=== PATIENT | female | born 2005 | race Two or more races ===

== ENCOUNTER 2025-03-22 17:22 | Emergency (ER) | payer MEDICAID, SELFPAY ==
--- NOTE | 2025-03-22 17:28 | EKG_ITS ---
[facility] Test Date: 2025-03-22 Pat Name: SALOME LOVING Department: Room: - Gender: Female Intraoperative Neuro Tech: : 2005 Requested By: Aline Fam Order Number: [id number] Reading MD: Aline Fam Measurements Intervals [place] Rate: 81 P: 61 CO: 157 QRS: 90 QRSD: 80 T: 59 QT: 359 QTc: 418 Interpretive Statements SINUS RHYTHM WITH SINUS ARRHYTHMIA No previous ECG available for comparison /store/S0/[id number]
[2025-03-22 17:36] VITALS: BP 118/86; PULSE 76; RESP 20; TEMP 36.9; O2SAT 98; BMI 38.3
--- NOTE | 2025-03-22 18:34 | XR_ITS ---
Examination: PA chest single view TECHNIQUE: Upright PA chest single view Date and time: March 22, 2025, 1848 hours, comparison February 18, 2017 INDICATION: Chest pain today. FINDINGS: Normal heart size. The lungs are clear. The osseous structures are intact IMPRESSION: No active disease
[2025-03-22 18:50] LABS: Basophils # (Auto) 0.1 Thou/mm3 (0.0-0.2); Basophils % (Auto) 1 % (0-2.5); Eosinophils # (Auto) 0.3 Thou/mm3 (0.0-0.5); Eosinophils % (Auto) 2 % (0-10); Hematocrit 41.5 % (36.0-46.0); Hemoglobin 14.3 g/dL (12.0-16.0); Immature Granulocytes Auto 0.02 Thou/mm3 (0.00-0.00); Lymphocytes # (Auto) 3.2 Thou/mm3 (1.0-4.8); Lymphocytes % (Auto) 29 % (10-50); Mean Corpuscular HGB Conc 34.5 g/dl (31.0-37.0); Mean Corpuscular Hemoglobin 30.6 pg (25.0-35.0); Mean Corpuscular Volume 89 fL (80-100); Monocytes # (Auto) 0.8 Thou/mm3 (0.0-0.8); Monocytes % (Auto) 7 % (0-12); Neutrophils # (Auto) 6.7 Thou/mm3 (1.8-7.7); Neutrophils % (Auto) 60 % (37-80); Nucleated Red Blood Cell # 0.00 Thou/mm3 (0.00-0.00); Nucleated Red Blood Cell % 0 /100 WBC (0); Platelet Count 243 Thou/mm3 (140-440); RDW Standard Deviation 42.2 fL (36.4-46.3); Red Blood Count 4.67 Miln/mm3 (4.00-5.20); White Blood Count 11.1 Thou/mm3 (4.5-11.0)
[2025-03-22 19:07] LABS: Alanine Aminotransferase 57 U/L (10-49); Albumin, Serum 4.5 gm/dL (3.5-5.0); Albumin/Globulin Ratio 1.7 (1.2-2.2); Alkaline Phosphatase 107 U/L (46-116); Anion Gap 8 (7-16); Aspartate Amino Transferase 28 U/L (0-34); BUN/Creatinine Ratio 11 Ratio (12-20); Bilirubin,Total 0.4 mg/dL (0.3-1.2); Blood Urea Nitrogen 10 mg/dL (9-23); Calcium 9.2 mg/dL (8.3-10.6); Calcium (Corrected) 9.2 mg/dL (8.5-10.1); Carbon Dioxide 26.4 mMol/L (20.0-31.0); Chloride 106 mMol/L (98-107); Creatinine (Component) 0.9 mg/dL (0.6-1.3); Estimated Creatinine Clearance 128.1 mL/min (>60); Globulin 2.6 gm/dL (2.3-3.5); Glucose 92 mg/dL (74-106); Osmolality,Calculated 278 (275-295); Potassium 4.4 mMol/L (3.4-5.1); Sodium 140 mMol/L (136-145); Total Protein 7.1 gm/dL (5.7-8.2); Troponin I < 0.002 ng/mL (0.0-0.045); eGFR > 60 See Note
[2025-03-22 19:32] LABS: B-Type Natriuretic Peptide < 20 pg/mL (0-100)
--- NOTE | 2025-03-22 20:25 | EDNOTE_ITS ---
ED Chest Pain RME/HPI General Chief Complaint: Chest Pain Stated Complaint: Chest pain after an energy drink Time Seen by Provider: 03/22/25 18:08 Source: patient Arrival date/time: 03/22/25 17:22 This is a case of 19-year-old female who came in in the emergency room due to chest pain today after drinking coffee patient denies any palpitation no shortness of breath patient denies any medical history patient states that the pain is throbbing mostly on the left anterior chest Limitations: no limitations Related Data Home Medications ?Medication ?Instructions ?Recorded ?Confirmed vits no.130-ferrous fum 1 tab PO QDAY 4 04/08/24 27 mg iron-folic acid 800 mcg tablet ( Vitamin) Allergies Allergy/AdvReac Type Severity Reaction Status Date / Time No Known Allergies Allergy Verified 03/22/25 17:26 Review of Systems Review of Systems Systems Reviewed: All systems reviewed, normal except as documented Constitutional Constitutional: Reports system reviewed and no additional complaints, except as documented and Reports as per HPI Cardiovascular Cardiovascular: Reports system reviewed and no additional complaints, except as documented, Reports as per HPI, Denies acrocyanosis, Reports chest pain, Denies chest pain at rest, Denies chest pain with activity, Denies claudication, Denies diaphoresis, Denies dyspnea, Denies dyspnea on exertion, Denies edema, Denies irregular heart rhythm, Denies leg edema, Denies leg ulcers, Denies lightheadedness, Denies orthopnea, Denies palpitations, Denies paroxysmal nocturnal dyspnea, Denies pedal edema, Denies radiating jaw, neck or arm pain, Denies rapid heart rate, Denies slow heart rate and Denies syncope Respiratory Respiratory: Reports system reviewed and no additional complaints, except as documented, Reports as per HPI, Denies dyspnea and Denies dyspnea on exertion Gastrointestinal Gastrointestinal: Reports system reviewed and no additional complaints, except as documented and Reports as per HPI Musculoskeletal Musculoskeletal: Reports system reviewed and no additional complaints, except as documented and Reports as per HPI Neurologic Neurologic: Reports system reviewed and no additional complaints, except as documented, Reports as per HPI and Denies syncope Endocrine Endocrine: Denies palpitations Past Medical History Past Medical History NEUROLOGIC: Negative Neurological Disorders CARDIAC: Negative Cardiac Disorders, Myocardial Infarction, Cardiac Arrhythmia, Atrial Fibrillation, Angina, Heart Murmur, Coronary Artery Disease, Atherosclerotic Heart Disease, Peripheral Vascular Disease, Hypercholesterolemia, Aneurysm, Congestive Heart Failure, Congenital Heart Disease, Valvular Heart Disease, Rheumatic Fever, Cardiomyopathy, Edema, Pericarditis, Cellulitis, Deep Vein Thrombosis, Hypertension, Hypotension or Varicose Veins RESPIRATORY: Negative Chronic Obstructive Pulmonary Disease (COPD) GASTROINTESTINAL: Negative Gastrointestinal Disorders GENITOURINARY: Negative Genitourinary Disorders or Renal Disease MUSCULOSKELETAL: Negative Musculoskeletal Disorders ENDOCRINE: Negative Endocrine Disorders, Diabetes Mellitus Type 1 or Diabetes Mellitus Type 2 HEMATOLOGIC: Negative Blood Disorders OTHER HISTORY: Negative Autoimmune Disease, Blood Transfusions, Blood Transfusion Reaction, Anesthesia Reactions, Organ Transplant, Chemotherapy, MRSA or Cancer Family History FAMILY HISTORY: Positive Family Cardiac Disorders (Grandmother High blood pressure); Negative Family Psychiatric Problems, Family Respiratory Disorders, Family Gastrointestinal Problems, Family Cancer, Family Surgery or Family Anesthesia Reaction Surgical History SURGICAL: Negative Pacemaker, Endocrine Surgery, Ear Surgery, Abdominal Surgery, Nephrectomy, Joint Replacement, Neurologic Surgery, Mastectomy, Section or Organ Transplant Social History SMOKING STATUS: Current every day smoker ED Exam General Limitations: Present no limitations General appearance: Present alert and in no apparent distress Head Head exam: Present atraumatic Eye Eye exam: Present normal appearance, PERRL and EOMI ENT ENT exam: Present normal exam, normal oropharynx and mucous membranes moist Neck Neck exam: Present normal inspection, full ROM and trachea midline; Absent tenderness, meningismus or lymphadenopathy Chest Chest inspection: Present normal inspection and symmetric chest wall rise; Absent tenderness, rash or abscess Respiratory Respiratory exam: Present normal lung sounds bilaterally; Absent respiratory distress, wheezes, stridor, accessory muscle use or prolonged expiratory phase Cardiovascular Cardiovascular exam: Present regular rate, normal rhythm and normal heart sounds; Absent bradycardia, tachycardia, irregular rhythm or systolic murmur Abdominal Exam Abdominal exam: Present soft and normal bowel sounds Extremities Exam Extremities exam: Present normal inspection and full ROM Back Exam Back exam: Present normal inspection and full ROM Neurological Exam Neurological exam: Present alert, oriented X3, CN II-XII intact, normal gait and reflexes normal; Absent motor sensory deficit Psychiatric Psychiatric exam: Present normal affect and normal mood Skin Skin exam: Present warm, dry, intact and normal color Course Quality Measures none Orders Category Date Time Status EKG (ED ONLY) *Do not use* NOW Care 03/22/25 17:28 Completed EKG (ED Only) Stat Exams 03/22/25 17:28 Draft XR chest 1V portable Stat Exams 03/22/25 18:34 Completed BNP [B-Type Natriuretic Peptide] Stat Lab 03/22/25 18:42 Completed CBC Stat Lab 03/22/25 18:42 Completed CMP [Comprehensive Metabolic Panel] Stat Lab 03/22/25 18:42 Completed HCG Qualitative,Urine Stat Lab 03/22/25 20:21 Received Troponin I Stat Lab 03/22/25 18:42 Completed Ibuprofen Tab [Motrin Tab] Med 03/22/25 20:24 Discontinued 800 mg PO X1 ONE Vital Signs Vital signs: Vital Signs Temperature 98.5 F 03/22/25 17:36 Pulse Rate 76 03/22/25 17:36 Respiratory Rate 20 03/22/25 17:36 Blood Pressure 118/86 H 03/22/25 17:36 Pulse Oximetry (%) 98 03/22/25 17:36 Oxygen Delivery Method Room Air 03/22/25 17:36 Patient is not febrile not tachycardic not tachypneic BP stable not hypoxic oxygen saturation percent is 98% in room air Chest Pain MDM Narrative MDM Narrative:: This is a case of 19-year-old female who came in in the emergency room due to ch est pain today after drinking coffee patient denies any palpitation no shortness of breath patient denies any medical history patient states that the pain is throbbing mostly on the left anterior chest physical examination patient is awake alert oriented not in distress nontoxic looking patient vital signs stable BP stable not tachycardic not tachypneic afebrile and nonhypoxic lung sounds is clear no crackles no rales no retraction no stridor heart normal rate regular rhythm no murmur the rest of the physical exam and neurological exam is normal and unremarkable blood test showed no leukocytosis no anemia kidney and liver function is normal no electrolyte imbalance chest x-ray is normal at this point there is no signs and symptoms of cardiopulmonary pathology patient was advised to follow-up with PCP in 2 days for reevaluation and to be referred to freight sorter for possible echocardiogram stress test and Holter monitor monitor for any recurrence worsening symptoms or any emergent concerns she will return the emergency room immediately or call [phone] Patient was discharged with comfortable condition walking with stable gait. Patient verbalized no further complains explained diagnosis and answered patient question. Patient is comfortable with the proposed management plan including the need to follow up with his/her primary care physician and any specialist if applicable Discussed patient for any urgent condition or worsening sx, He/She needed to go to emergency room immediately or call 911. Patient acknowledge the responsibility to follow up as instructed and to monitor her/his symptoms. For any persistence of the symptoms for more than 3-5 days return precaution advised. Discussed the result of the test and was given printed discharge instruction Patient data External records reviewed:: [facility] previous records Clinical information provided by:: patient Social determinants that could affect healthcare access:: none Patient has the following chronic illnesses:: None How is presenting disease/condition affected by chronic disease/condition?: no chronic disease Evaluation data The following diagnostics were reviewed and interpreted by me:: lab results and radiology exam(s) Lab and/or radiology exams considered but not ordered:: Reviewed Interpretation Summary: Reviewed Medications / Prescriptions Medications or Prescriptions considered but not ordered:: Given Medication administrations:: Medication Administration History Discontinued Medications Ibuprofen (Ibuprofen Tab 400 Mg Tablet) 800 mg PO X1 ONE Stop: 03/22/25 20:25 Given Consultations Consultation(s) initiated? (list below): No Diagnosis Chest Pain Differential Diagnosis: atypical chest pain, costochondritis and chest pain Most likely diagnosis given after review of the tests above:: Chest pain of unknown etiology Admission Indicated Admission indicated?: not indicated Explain why admission is indicated or not indicated:: Not indicated Admission Request Was there a request for admission?: No Admission Attestation Admission request attestation: Not indicated Disposition Plan Disposition Plan: Discharge Discharge Attestation Discharge Attestation: The patient and all family members were given an opportunity to ask questions and understood the discharge instructions. Discharge instructions specifically effects, indications for sooner follow up or return to the emergency department, and the expected course of current diagnosis. Patient condition: Stable Discharge Plan Plan Patient Disposition: HOME (Self Care) Patient condition on transfer: Stable Prescriptions/Referrals Prescriptions/Med Rec: No Action Vitamin 27 mg iron- 800 mcg tablet 1 tab PO QDAY Patient Comments: TAKE 1 TABLET BY MOUTH EVERY DAY Referrals: No Primary/Family,Physician [Primary Care Provider] - In 1 week Problem List Clinical Impression: Chest pain of unknown etiology Patient/Caregiver Discharge Instructions Education Materials: ED Chest Pain, Uncertain Cause Additional Instructions: Follow-up with your primary care physician in 2 days for reevaluation and to be referred to freight sorter for further evaluation and treatment of chest pain for possible echocardiogram stress test and Holter monitor recurrence worsening symptoms or any emergent concern call 911 or go to the nearest emergency room ibuprofen and Tylenol as needed for pain Print Language: Portuguese Stand Alone Forms: [employer] Award Info., Patient Portal Info Letter PA/HOISTING MACHINE OPERATOR Supervising Physician PA/HOISTING MACHINE OPERATOR Supervising Physician: dr cordoav
[2025-03-22] MEDS: IBUPROFEN TAB 400 MG TABLET 800 MG PO (20:29)
[2025-03-22 20:31] LABS: HCG Qualitative,Urine Negative
== END 2025-03-22 20:32 | disposition home or self-care (01) ==
PROVIDERS: Nurse Practitioner Family; Emergency Provider Emergency Medicine
DX: R07.9 Chest pain, unspecified (principal); I49.8 Other specified cardiac arrhythmias
CPT/HCPCS: 36415; 71045; 80053; 81025; 83880; 84484; 85025; 93005; 99283; A9270

== ENCOUNTER 2025-07-13 09:24 | Emergency (ER) | payer MEDICAID, SELFPAY ==
[2025-07-13 09:33] VITALS: BP 124/80; PULSE 64; RESP 16; TEMP 36.6; O2SAT 97; BMI 39.1
--- NOTE | 2025-07-13 09:39 | EKG_ITS ---
[facility] Test Date: 2025-07-13 Pat Name: SALOME LOVING Department: Room: - Gender: Female Home Therapy Clinician: : 2005 Requested By: Beto Cast (CARLO) Order Number: [id number] Reading MD: Beto Cast (MASONRY CONTRACTOR) Measurements Intervals [place] Rate: 67 P: 46 DE: 155 QRS: 43 QRSD: 80 T: 72 QT: 340 QTc: 361 Interpretive Statements SINUS RHYTHM WITH SINUS ARRHYTHMIA NONSPECIFIC T-WAVE ABNORMALITY Compared to ECG 03/22/2025 17:37:17 T-wave abnormality now present /store/S0/[id number]
--- NOTE | 2025-07-13 09:39 | XR_ITS ---
EXAMINATION: PA lateral chest 2 views TECHNIQUE: Upright PA lateral chest 2 views Date and time: July 13, 2025, 0948 hours INDICATIONS: Chest pain today. FINDINGS: Mild enlargement left ventricle. No pneumonia or pulmonary edema. The osseous structures are intact IMPRESSION: Minor prominence left ventricle, clinical correlation advised No pneumonia or pulmonary edema
--- NOTE | 2025-07-13 09:51 | PD.EDRME ---
Rapid Medical Screening Exam RME Arrival date/time: 07/13/25 09:24 20-year-old female presents to the emergency room today for complaints of back pain and chest pain Chief Complaint: Chest Pain Time Seen by Provider: 07/13/25 09:29 Vital signs: Vital Signs Temperature 97.9 F 07/13/25 09:33 Pulse Rate 64 07/13/25 09:33 Respiratory Rate 16 07/13/25 09:33 Blood Pressure 124/80 07/13/25 09:33 Pulse Oximetry (%) 97 07/13/25 09:33 Oxygen Delivery Method Room Air 07/13/25 09:33 Vital signs reviewed by provider: Yes Exam: On exam patient well-appearing patient does not appear ill or toxic no acute distress Heart sounds are normal lung sounds are clear Clinical Impression: Lab work and imaging ordered
[2025-07-13 10:26] LABS: Basophils # (Auto) 0.1 Thou/mm3 (0.0-0.2); Basophils % (Auto) 1 % (0-2.5); Eosinophils # (Auto) 0.2 Thou/mm3 (0.0-0.5); Eosinophils % (Auto) 2 % (0-10); Hematocrit 41.6 % (36.0-46.0); Hemoglobin 14.0 g/dL (12.0-16.0); Immature Granulocytes Auto 0.02 Thou/mm3 (0.00-0.00); Lymphocytes # (Auto) 3.5 Thou/mm3 (1.0-4.8); Lymphocytes % (Auto) 38 % (10-50); Mean Corpuscular HGB Conc 33.7 g/dl (31.0-37.0); Mean Corpuscular Hemoglobin 31.7 pg (25.0-35.0); Mean Corpuscular Volume 94 fL (80-100); Monocytes # (Auto) 0.8 Thou/mm3 (0.0-0.8); Monocytes % (Auto) 8 % (0-12); Neutrophils # (Auto) 4.8 Thou/mm3 (1.8-7.7); Neutrophils % (Auto) 51 % (37-80); Nucleated Red Blood Cell # 0.00 Thou/mm3 (0.00-0.00); Nucleated Red Blood Cell % 0 /100 WBC (0); Platelet Count 221 Thou/mm3 (140-440); RDW Standard Deviation 40.2 fL (36.4-46.3); Red Blood Count 4.41 Miln/mm3 (4.00-5.20); White Blood Count 9.4 Thou/mm3 (3.6-11.0)
[2025-07-13 10:32] LABS: Alanine Aminotransferase 92 U/L (10-49); Albumin, Serum 4.8 gm/dL (3.5-5.0); Albumin/Globulin Ratio 2.7 (1.2-2.2); Alkaline Phosphatase 106 U/L (46-116); Anion Gap 11 (7-16); Aspartate Amino Transferase 38 U/L (0-34); BUN/Creatinine Ratio 13 Ratio (12-20); Bilirubin,Total 0.4 mg/dL (0.3-1.2); Blood Urea Nitrogen 13 mg/dL (9-23); Calcium 8.9 mg/dL (8.3-10.6); Calcium (Corrected) 8.9 mg/dL (8.5-10.1); Carbon Dioxide 25.5 mMol/L (20.0-31.0); Chloride 108 mMol/L (98-107); Creatinine (Component) 1.0 mg/dL (0.6-1.3); Estimated Creatinine Clearance 115.6 mL/min (>60); Globulin 1.8 gm/dL (2.3-3.5); Glucose 90 mg/dL (74-106); Osmolality,Calculated 286 (275-295); Potassium 4.5 mMol/L (3.4-5.1); Sodium 144 mMol/L (136-145); Total Protein 6.6 gm/dL (5.7-8.2); Troponin I < 0.002 ng/mL (0.0-0.045); eGFR > 60 See Note
[2025-07-13 11:02] LABS: Collection Type, Urine Clean Catch
[2025-07-13 11:09] LABS: Bilirubin,Urine Negative (Negative); Blood,Urine Negative (Negative); Clarity,Urine Clear (Clear/Hazy); Color,Urine Lt-Yellow (Lt Yel-Yel); Culture Indicated,Urine Not Indicated; Glucose, Urine Negative (Negative); Ketones,Urine Negative (Negative); Leukocyte Esterase,Urine Positive (Negative); Nitrite,Urine Negative (Negative); PH,Urine 6.0 (5.0-7.0); Protein,Urine Negative (Neg - Trace); RBC,Urine 3 /hpf (0-3); Specific Gravity,Urine 1.028 (1.001-1.035); Squamous Epithelial Cell,Urine 7 /hpf (0-5); Urobilinogen,Urine Negative mg/dL (0.0-1.0); WBC,Urine 3 /hpf (0-5)
[2025-07-13 11:32] LABS: HCG Qualitative,Urine Negative
[2025-07-13 12:09] VITALS: BP 112/75; PULSE 62; RESP 16; TEMP 36.7; O2SAT 98
--- NOTE | 2025-07-13 12:28 | EDNOTE_ITS ---
<Statement entered by Palak Richardson MD - 07/21/25 14:15> As co-signing physician, I was present and available for consult prn. I concur with the plan and care as documented by the midlevel provider. ED General RME/HPI General Chief complaint: Chest Pain Stated complaint: LEFT CHEST PAIN, BACK PAIN Time Seen by Provider: 07/13/25 09:29 Arrival date/time: 07/13/25 09:24 CC: Left lateral chest wall pain HPI ongoing for the past 3 days denies trauma blunt trauma repetitive motion heavy lifting. No other complaints including cough but states that she has difficulty taking a deep breath secondary to the localized pain and the pain is reproducible with palpation. Currently the pain is a 3 to a 4 on a 10 scale. RME / HPI RME / HPI narrative: 07/13/25 09:24 20-year-old female presents to the emergency room today for complaints of back pain and chest pain Exam: On exam patient well-appearing patient does not appear ill or toxic no acute distress Heart sounds are normal lung sounds are clear Impression: Lab work and imaging ordered Related Data Home Medications ?Medication ?Instructions ?Recorded ?Confirmed vits no.130-ferrous fum 1 tab PO QDAY 4 04/08/24 27 mg iron-folic acid 800 mcg tablet ( Vitamin) Previous Rx's ?Medication ?Instructions ?Recorded meloxicam 7.5 mg tablet 7.5 mg PO QDAY #10 tabs 06/20 02/10 Allergies Allergy/AdvReac Type Severity Reaction Status Date / Time No Known Allergies Allergy Verified 03/22/25 17:26 Review of Systems Review of Systems Narrative Review of Systems: GEN: No fever, no chills, no weight loss EYES: No discharge, no visual changes, no pain HEENT: No ear pain, no congestion, no sore throat PULM: No shortness of breath, no cough, no congestion CV: + chest pain, no dyspnea on exertion, no palpitations GI: No nausea, no vomiting, no diarrhea, no pain, no constipation : No frequency, no urgency, no dysuria MUSC/SKEL: No joint pain, no back pain SKIN: No rash PSYCH: No hallucinations, no depression HEME/LYMPH: No easy bleeding or bruising tendencies NEURO: No weakness, no headache Past Medical History Past Medical History NEUROLOGIC: Negative Neurological Disorders CARDIAC: Negative Cardiac Disorders, Myocardial Infarction, Cardiac Arrhythmia, Atrial Fibrillation, Angina, Heart Murmur, Coronary Artery Disease, Atherosclerotic Heart Disease, Peripheral Vascular Disease, Hypercholesterolemia, Aneurysm, Congestive Heart Failure, Congenital Heart Disease, Valvular Heart Disease, Rheumatic Fever, Cardiomyopathy, Edema, Pericarditis, Cellulitis, Deep Vein Thrombosis, Hypertension, Hypotension or Varicose Veins RESPIRATORY: Negative Chronic Obstructive Pulmonary Disease (COPD) GASTROINTESTINAL: Negative Gastrointestinal Disorders GENITOURINARY: Negative Genitourinary Disorders or Renal Disease MUSCULOSKELETAL: Negative Musculoskeletal Disorders ENDOCRINE: Negative Endocrine Disorders, Diabetes Mellitus Type 1 or Diabetes Mellitus Type 2 HEMATOLOGIC: Negative Blood Disorders OTHER HISTORY: Negative Autoimmune Disease, Blood Transfusions, Blood Transfusion Reaction, Anesthesia Reactions, Organ Transplant, Chemotherapy, MRSA or Cancer Family History FAMILY HISTORY: Positive Family Cardiac Disorders (Grandmother High blood pressure); Negative Family Psychiatric Problems, Family Respiratory Disorders, Family Gastrointestinal Problems, Family Cancer, Family Surgery or Family Anesthesia Reaction Surgical History SURGICAL: Negative Pacemaker, Endocrine Surgery, Ear Surgery, Abdominal Surgery, Nephrectomy, Joint Replacement, Neurologic Surgery, Mastectomy, Section or Organ Transplant Social History SMOKING STATUS: Never smoker ED Exam Narrative Physical exam: [General: Obese not in any acute distress Head normocephalic HEENT: Within acceptable limits Neck is supple nontender Chest equal chest rise site-specific area of tenderness with palpation in the left axilla approximately ribs 7 and 8 mid axillary line. Respiratory: Clear to auscultation no wheezes crackles or rubs CV: Rate rhythm is regular no murmurs rubs or clicks Abdomen is distended secondary to body habitus soft nontender no masses positive bowel sounds all 4 quadrants Back: No CVA tenderness no spinous process tenderness from cervical spine thoracic and lumbar spine Skin: Intact no petechiae rash induration ulceration or crepitus Extremities: Moving all extremity against resistance cap refill less than 2 seconds neurosensory intact Neuro: Awake alert oriented x3 Glascow coma 15 no focal deficits] Course Quality Measures none Orders Category Date Time Status EKG (ED ONLY) *Do not use* NOW Care 07/13/25 09:39 Completed EKG (ED Only) Stat Exams 07/13/25 09:39 Draft XR chest 2V Stat Exams 07/13/25 09:39 Completed CBC Stat Lab 07/13/25 09:58 Completed Comprehensive Metabolic Panel Stat Lab 07/13/25 09:58 Completed HCG Qualitative,Urine Stat Lab 07/13/25 10:55 Completed Troponin I Stat Lab 07/13/25 09:58 Completed UA, C/S IF [Urinalysis, C/S if Indicated] Stat Lab 07/13/25 10:55 Completed Vital Signs Vital signs: Vital Signs Temperature 97.9 F 07/13/25 09:33 Pulse Rate 64 07/13/25 09:33 Respiratory Rate 16 07/13/25 09:33 Blood Pressure 124/80 07/13/25 09:33 Pulse Oximetry (%) 97 07/13/25 09:33 Oxygen Delivery Method Room Air 07/13/25 09:33 Discharge Plan Plan Patient Disposition: HOME (Self Care) Patient condition on transfer: Stable Prescriptions/Referrals Prescriptions/Med Rec: New meloxicam 7.5 mg tablet 7.5 mg PO QDAY Qty: 10 0RF No Action Vitamin 27 mg iron- 800 mcg tablet 1 tab PO QDAY Patient Comments: TAKE 1 TABLET BY MOUTH EVERY DAY Referrals: Sophia Wells ASSOCIATE BUSINESS ANALYST [Primary Care Provider] - In 1 week Problem List Clinical Impression: Chest wall pain Patient/Caregiver Discharge Instructions Education Materials: ED Chest Pain, Noncardiac Additional Instructions: Take the medication for temporary pain relief follow-up with your primary care doctor. Print Language: Guatemalan Stand Alone Forms: [employer] Award Info., Work/School Release, Patient Portal Info Letter PA/TASHA Supervising Physician PA/TASHA Supervising Physician: Stan Doss ENP [facility] Clinical Information Provided by: patient Medical Records reviewed [facility] Meds/Rx considered, not ordered None Labs/Rad/Tests considered, not ordered None Chronic Illness/Social Conditions which may negatively complicate care or outcome(s)-explain: None or not applicable Explain: Obesity EKG Interpretation EKG #1: EKG Interpretation: EKG performed at 0 943 shows a ventricular rate of 6 7 RI interval 155 QRS of 8 0 QTc of 356 is normal sinus rhythm with baseline artifact. Labs Labs: interpreted by [facility] Lab(s) Interpretation(s): CBC showed no acute leukocytosis anemia thrombocytopenia CMP is no significant electrolyte imbalances or renal impairment there is a mild transaminitis no T. bili elevation. Troponin is negative Urine is negative for UTI Imaging Imaging interpretation: interpreted by [facility] Imaging Interpretation(s): Chest x-ray shows no acute finding other than a mildly enlarged left ventricle. Diagnosis Differential Diagnosis ED Complaint MDM: ACS NM pneumonia
== END 2025-07-13 13:37 | disposition home or self-care (01) ==
PROVIDERS: Nurse Practitioner Primary Care; Emergency Provider Emergency Medicine; PCP Nurse Practitioner Women's Health
DX: R07.89 Other chest pain (principal)
CPT/HCPCS: 36415; 71046; 80053; 81001; 81025; 84484; 85025; 93005; 99282

== ENCOUNTER 2025-08-30 21:22 | Emergency (ER) | payer MEDICAID, SELFPAY ==
[2025-08-30 21:25] VITALS: BMI 37.5
[2025-08-30 21:39] VITALS: BP 124/85; PULSE 116; RESP 20; TEMP 37.2; O2SAT 96
--- NOTE | 2025-08-30 21:40 | XR_ITS ---
EXAMINATION: Ankle, right 3 views. Technique: Ankle AP, oblique, lateral 3 views Date and time of exam: August 30, 2025, 10:08 a.m. INDICATION: Twisting injury to the ankle, ankle pain FINDINGS: Acute comminuted fractures distal fibular shaft No significant offset No ankle dislocation IMPRESSION: Acute comminuted fractures distal fibular shaft
[2025-08-30 21:51] VITALS: BP 132/82; PULSE 100; RESP 18; TEMP 36.9; O2SAT 96
--- NOTE | 2025-08-30 22:30 | PD.EDANKLE ---
Lower Extremity Injury RME/HPI General Chief Complaint: Ankle/Foot Injury Stated Complaint: SWOLLEN ANKLE Time Seen by Provider: 08/30/25 22:06 Arrival date/time: 08/30/25 21:22 20F with no significant PMH presents to ED with R ankle pain after she twisted it. Limitations: no limitations Related Data Home Medications ?Medication ?Instructions ?Recorded ?Confirmed vits no.130-ferrous fum 1 tab PO QDAY 04/08/24 04/08/24 27 mg iron-folic acid 800 mcg tablet ( Vitamin) Previous Rx's ?Medication ?Instructions ?Recorded meloxicam 7.5 mg tablet 7.5 mg PO QDAY #10 tabs 07/13/25 Allergies Allergy/AdvReac Type Severity Reaction Status Date / Time No Known Allergies Allergy Verified 03/22/25 17:26 Review of Systems Review of Systems Systems Reviewed: All systems reviewed, normal except as documented Musculoskeletal Musculoskeletal: Reports as per HPI and Reports arthralgias Past Medical History Past Medical History NEUROLOGIC: Negative Neurological Disorders CARDIAC: Negative Cardiac Disorders, Myocardial Infarction, Cardiac Arrhythmia, Atrial Fibrillation, Angina, Heart Murmur, Coronary Artery Disease, Atherosclerotic Heart Disease, Peripheral Vascular Disease, Hypercholesterolemia, Aneurysm, Congestive Heart Failure, Congenital Heart Disease, Valvular Heart Disease, Rheumatic Fever, Cardiomyopathy, Edema, Pericarditis, Cellulitis, Deep Vein Thrombosis, Hypertension, Hypotension or Varicose Veins RESPIRATORY: Negative Chronic Obstructive Pulmonary Disease (COPD) GASTROINTESTINAL: Negative Gastrointestinal Disorders GENITOURINARY: Negative Genitourinary Disorders or Renal Disease MUSCULOSKELETAL: Negative Musculoskeletal Disorders ENDOCRINE: Negative Endocrine Disorders, Diabetes Mellitus Type 1 or Diabetes Mellitus Type 2 HEMATOLOGIC: Negative Blood Disorders OTHER HISTORY: Negative Autoimmune Disease, Blood Transfusions, Blood Transfusion Reaction, Anesthesia Reactions, Organ Transplant, Chemotherapy, MRSA or Cancer Family History FAMILY HISTORY: Positive Family Cardiac Disorders (Grandmother High blood pressure); Negative Family Psychiatric Problems, Family Respiratory Disorders, Family Gastrointestinal Problems, Family Cancer, Family Surgery or Family Anesthesia Reaction Surgical History SURGICAL: Negative Pacemaker, Endocrine Surgery, Ear Surgery, Abdominal Surgery, Nephrectomy, Joint Replacement, Neurologic Surgery, Mastectomy, Section or Organ Transplant Social History SMOKING STATUS: Never smoker ED Exam General Limitations: Present no limitations General appearance: Present alert and in no apparent distress Head Head exam: Present atraumatic Neck Neck exam: Present normal inspection, full ROM and trachea midline Chest Chest inspection: Present normal inspection and symmetric chest wall rise Extremities Exam Extremities exam: Present full ROM Expanded Lower Extremity Exam Ankle exam: Present full ROM (R), tenderness and swelling Neurological Exam Neurological exam: Present alert and oriented X3 Psychiatric Psychiatric exam: Present normal affect and normal mood Skin Skin exam: Present warm, dry, intact and normal color Course Quality Measures none Orders Category Date Time Status Crutches .NOW Care 08/30/25 22:20 Active Splint / Immobilizer STAT Care 08/30/25 22:20 Active XR ankle comp RT min 3V Stat Exams 08/30/25 21:40 Completed HYDROcodone*/APAP 5/325 [Frohna 5/325] Med 08/30/25 22:39 Discontinued 1 tab PO X1 ONE Vital Signs Vital signs: Vital Signs Temperature 98.9 F 08/30/25 21:39 Pulse Rate 116 H 08/30/25 21:39 Respiratory Rate 20 08/30/25 21:39 Blood Pressure 124/85 H 08/30/25 21:39 Pulse Oximetry (%) 96 08/30/25 21:39 Oxygen Delivery Method Room Air 08/30/25 21:39 O2 at 96% on RA and WNLs Extremity Injury, Lower MDM Narrative MDM Narrative:: 20F with no significant PMH presents to ED with R ankle pain after she twisted it. Physical exam reveals R ankle swelling and tenderness. ROM mostly intact. Patient is afebrile, calm, and alert. XR reveals R distal fibula fx. Given meds, splint, crutches, and evp general counsel. Patient data External records reviewed:: [facility] previous records Clinical information provided by:: patient Social determinants that could affect healthcare access:: none Patient has the following chronic illnesses:: none How is presenting disease/condition affected by chronic disease/condition?: no chronic disease Evaluation data The following diagnostics were reviewed and interpreted by me:: radiology exam(s) Lab and/or radiology exams considered but not ordered:: ordered Interpretation Summary: above Medications / Prescriptions Medications or Prescriptions considered but not ordered:: ordered Medication administrations:: Medication Administration History Discontinued Medications Hydrocodone Bitart/Acetaminophen (Hydrocodone/Apap 5/325 Tablet) 1 tab PO X1 ONE Stop: 08/30/25 22:40 Last Admin: 08/30/25 22:48 Dose: 1 tab Documented By: BD above Consultations Consultation(s) initiated? (list below): No Diagnosis Extremity Injury, Lower Differential Diagnosis: ankle sprain and strain, acute internal derangement of knee, puncture wound of foot, fracture of toe and ankle fracture Most likely diagnosis given after review of the tests above:: ankle fx Admission Indicated Admission indicated?: not indicated Admission Request Was there a request for admission?: No Disposition Plan Disposition Plan: Discharge Discharge Attestation Discharge Attestation: The patient and all family members were given an opportunity to ask questions and understood the discharge instructions. Discharge instructions specifically effects, indications for sooner follow up or return to the emergency department, and the expected course of current diagnosis. Patient condition: Stable Discharge Plan Plan Patient Disposition: HOME (Self Care) Discharge Disposition comment: Stable Prescriptions/Referrals Prescriptions/Med Rec: No Action Vitamin 27 mg iron- 800 mcg tablet 1 tab PO QDAY Patient Comments: TAKE 1 TABLET BY MOUTH EVERY DAY meloxicam 7.5 mg tablet 7.5 mg PO QDAY Qty: 10 0RF Problem List Clinical Impression: Ankle fracture Patient/Caregiver Discharge Instructions Education Materials: ED Ankle Fracture, Distal Fibula Additional Instructions: Please follow-up with PCP within 24-48 hours and return immediately if symptoms worsen. See PCP for referral to ortho. Make sure to bring disk. Print Language: Palauan Stand Alone Forms: Patient Portal Info Letter PA/PUBLIC RELATIONS COUNSELOR Supervising Physician MATHIEU/TASHA Supervising Physician: Dr. Mortensen
[2025-08-30] MEDS: HYDROcodone/APAP 5/325 TABLET 1 TAB PO (22:48)
== END 2025-08-30 23:39 | disposition home or self-care (01) ==
LOC: SERX 23:17
PROVIDERS: Emergency Provider Emergency Medicine
DX: S82.451A Displaced comminuted fracture of shaft of right fibula, initial encounter for closed fracture (principal); X50.1XXA Overexertion from prolonged static or awkward postures, initial encounter
CPT/HCPCS: 29515; 73610; 99283; A9270